=== PATIENT | male | born 1950 | race Caucasian/White ===

== ENCOUNTER 2017-03-16 07:35 | Day surgery (SDC) | payer MEDICARE, OTHER ==
--- NOTE | ~2017-03-16 | OP ---
Record Of Operation [facility] [address] [place]. [address] NAME: TITI FERREIRA JR : 54 STATUS : REG [facility]#: [id number] AGE: 66 ADM/REG DATE : 03/16/17 MR#: [id number] REPORT SERV DATE: 03/16/17 DICTATED BY: CHRISTAL HU DATE: 03/16/17 REPORT STATUS : Draft TRANSCRIBED BY: MODL DATE: 03/16/17 DATE OF PROCEDURE: 03/16/2017 PREOPERATIVE DIAGNOSIS: Ulcer, left 2nd toe. POSTOPERATIVE DIAGNOSIS: Ulcer, left 2nd toe. PROCEDURE: Left 2nd toe amputation, interphalangeal. ANESTHESIA: Regional with sedation. COMPLICATIONS: None. BLOOD LOSS: 15. HISTORY: The patient is a 66-year-old male with a history of diabetes, peripheral arterial disease. He has a new ulcer on his 2nd toe after recent healing a 1st toe amputation on the left. Thought he would benefit from a 2nd toe amputation. This was discussed in detail with the patient and family. They expressed understanding and desired to proceed. DESCRIPTION OF PROCEDURE: The patient was taken to the operating room and placed in supine position. He was given IV sedation without complication. He received a block by anesthesia in the preoperative area. Left foot was prepped and draped in sterile fashion. An incision was created around the proximal portion of the second toe circumferentially to the level of the bone. The proximal phalanx was divided with bone cutters. The rongeur was used to debride the bone to a smooth edge. Bovie cautery was used to achieve hemostasis. Incision was closed with multiple interrupted 3-0 Ethilon vertical mattress sutures and sterile dressing applied. The patient tolerated the procedure well. He will be taken to the recovery room and discharged home when stable. EZRA/STERLING Christal Hu M.D. / [id number] CC: Marcel Rodriguez M.D.
[~2017-03-16 07:35] MED LIST: APRES50 PO; ASA5GR PO; ASABAYER PO; BACTRIM DS PO; CAT2 PO; CATAPRES3 TOP; CYMBALTA60 PO; DSS PO; EXELON9.5T TOP; FLOMAX4 PO; GLUCOPHAGE1000 MG PO; HYDROCHLOROT12.5 MG PO; HYDROCHLOROT50 MG PO; INSNOVR; INSNOVR SC; LEVEMIR SC; LEXAPRO20 PO; LIPITOR10 PO; LISINOPRIL40 MG PO; LORTAB 10/325MG PO; MAGOX4 PO; MELA3 PO; MIRALAX POWDER1 PKT PO; MIRALAXPKT PO; NEUR300 PO; NORCO1 TAB PO; NORV10 PO; PEP20 PO; PLAVIX PO; PRENATAL VITAMIN PO; PRENAVITE PO; PRENAVITE PR PO; PROTONIX PO; PROTONIX20 MG PO; REM15 PO; REMERON30 MG PO; SENTAB PO; T PO; TOPXL100 PO; TRADJENTA5 MG PO; TRAMADOL 100 MG PO; ULTRAM ER300 MG PO; ULTRAM50 PO; VITC500 PO; WELLSR150 PO; ZOFRAN4 PO; [UNRECOGNIZED DRUG - SUPPLY]
[2017-03-16 08:45] LABS: HEMATOCRIT 35.7 % (40.0-51.0); HEMOGLOBIN 11.9 g/dL (13.6-17.8)
[2017-03-16 09:00] LABS: BUN (BLOOD UREA NITROGEN) 19 MG/DL (6-23); CALCIUM, SERUM 9.1 MG/DL (8.5-10.4); CHLORIDE, SERUM 107 MMOL/L (96-112); CO2 (CARBON DIOXIDE) 25 MMOL/L (24-34); CREATININE 1.12 MG/DL (0.70-1.30); GFR AFRICAN AMERICAN 80 ML/MIN (>=60); GFR NON AFRICAN AMERICAN 69 ML/MIN (>=60); GLUCOSE, SERUM 150 MG/DL (60-99); POTASSIUM, SERUM 4.8 MMOL/L (3.5-5.3); SODIUM, SERUM 141 MMOL/L (135-148)
[2017-05-28] MEDS ORDERED: PROTONIX20 MG PO (14:15)
[2017-05-28] MEDS ORDERED: IPRATROPIUM/ALBUTERO INH (14:19)
[2017-05-30] MEDS ORDERED: NORCO1 TAB PO (21:30)
== END 2017-03-16 17:30 | disposition home or self-care (01) ==
LOC: SDC 07:35
PROVIDERS: Surgery
DX: E11.622 Type 2 diabetes mellitus with other skin ulcer (principal); L97.529 Non-pressure chronic ulcer of other part of left foot with unspecified severity; E11.51 Type 2 diabetes mellitus with diabetic peripheral angiopathy without gangrene; I10 Essential (primary) hypertension; E78.00 Pure hypercholesterolemia, unspecified; F32.9 Major depressive disorder, single episode, unspecified; Z86.73 Personal history of transient ischemic attack (TIA), and cerebral infarction without residual deficits; Z90.49 Acquired absence of other specified parts of digestive tract; Z91.041 Radiographic dye allergy status; Z88.8 Allergy status to other drugs, medicaments and biological substances; Z79.82 Long term (current) use of aspirin; Z79.899 Other long term (current) drug therapy
CPT/HCPCS: 28825; 80048; 82962; 85014; 85018; 88305; 93005; J0690; J2250; J2795; J3010